=== PATIENT | female | born 2000 | race Caucasian/White ===

== ENCOUNTER 2021-02-10 20:26 | Emergency (ER) | payer OTHER ==
[~2021-02-10] VITALS: Ht 177.8 cm; Wt 86.3 kg
[2021-02-10] MEDS ORDERED: PREN1CHW PO (20:42)
[2021-02-11] MEDS ORDERED: ACETAMINOPHEN 325 MG TAB PO ONE (00:15)
[2021-02-11 00:26] LABS: BASO % 0.2 % (0.0-1.0); EOS % 0.2 % (0.0-3.0); HEMATOCRIT 35.6 % (36.0-47.0); HEMOGLOBIN 11.7 g/dl (12.0-15.5); LYMPH # 1.1 10^3/uL (1.5-5.0); MEAN CORPUSCULAR HEMOGLOBIN 25.7 pg (27.0-33.0); MEAN CORPUSCULAR HGB CONC 32.9 g/dl (32.0-36.5); MEAN CORPUSCULAR VOLUME 78.2 fl (80.0-96.0); MONO # 0.2 10^3/uL (0.0-0.8); MONO % 1.6 % (2.0-8.0); NEUTROPHILS # 10.8 10^3/uL (1.5-8.5); NEUTROPHILS % 88.6 % (36.0-66.0); PLATELET COUNT, AUTOMATED 237 10^3/uL (150-450); RED BLOOD COUNT 4.55 10^6/uL (4.00-5.40); WHITE BLOOD COUNT 12.1 10^3/uL (4.0-10.0)
[2021-02-11 00:52] LABS: ALBUMIN 3.7 GM/DL (3.2-5.2); ALT/SGPT 22 U/L (12-78); BILIRUBIN,DIRECT 0.1 MG/DL (0.0-0.2); BILIRUBIN,TOTAL 0.3 MG/DL (0.2-1.0); BLOOD UREA NITROGEN 8 MG/DL (7-18); CALCIUM LEVEL 9.2 MG/DL (8.5-10.1); CARBON DIOXIDE LEVEL 23 MEQ/L (21-32); CHLORIDE LEVEL 100 MEQ/L (98-107); CREATININE FOR GFR 0.62 MG/DL (0.55-1.30); GLUCOSE, FASTING 86 MG/DL (70-100); LIPASE 97 U/L (73-393); POTASSIUM SERUM 3.8 MEQ/L (3.5-5.1); SODIUM LEVEL 133 MEQ/L (136-145); TOTAL PROTEIN 7.9 GM/DL (6.4-8.2)
[2021-02-11 01:10] VITALS: BP 135/84
--- NOTE | 2021-02-11 01:12 | REPVR ---
PROCEDURE INFORMATION: Exam: US Retroperitoneal Limited, Kidneys Exam date and time: 02/11/2021 12:22 AM Age: 20 years old Clinical indication: Pain; Other: Flank lt; ; Additional info: R/O kidney stone, patient is preg left side TECHNIQUE: Imaging protocol: Real-time ultrasound of the retroperitoneum with image documentation. Examination was focused on the kidneys. COMPARISON: No relevant prior studies available. FINDINGS: Right kidney: Right kidney measures 10.9 cm. Normal echotexture. No stones. No hydronephrosis. Left kidney: Left kidney measures 10.5 cm. Normal echotexture. No stones. No hydronephrosis. Bladder: Urinary bladder is not well visualized. IMPRESSION: No acute findings. No hydronephrosis. Electronically signed by: César Cai On 02/11/2021 01:11:40 AM
--- NOTE | 2021-02-11 01:14 | REPVR ---
PROCEDURE INFORMATION: Exam: US , Limited Exam date and time: 02/11/2021 12:22 AM Age: 20 years old Clinical indication: Pain; Other: Lt adnexal; Gestational age or lmp: 15wks; ; Additional info: Cramping/ left side TECHNIQUE: Imaging protocol: Real-time ultrasound of the maternal uterus with image documentation. Exam focused on the clinical indication. COMPARISON: RENAL US 02/11/2021 12:09 AM FINDINGS: Gestation: Single living intrauterine gestation. heart rate: 134 bpm. presentation: Variable presentation. Placenta: Fundal placenta. No placenta previa. Amniotic fluid index: 9.0 cm. IMPRESSION: Unremarkable limited exam. Electronically signed by: César Cai On 02/11/2021 01:13:58 AM
== END 2021-02-11 02:21 | disposition home or self-care (01) ==
LOC: M ED 20:26
DX: O23.42 Unspecified infection of urinary tract in pregnancy, second trimester (principal); O99.012 Anemia complicating pregnancy, second trimester; Z88.0 Allergy status to penicillin

== ENCOUNTER 2021-07-25 15:10 | Outpatient (CLI) | payer OTHER ==
[~2021-07-25] VITALS: Ht 177.8 cm; Wt 96.0 kg
[~2021-07-25 15:10] MED LIST: PREN1CHW PO
[2021-07-25 15:26] VITALS: BP 119/84
[2021-07-25] MEDS ORDERED: ACET-897 PO (15:45)
[2021-07-25] MEDS ORDERED: FIORICET TAB PO ONE (16:05)
[2021-07-25] MEDS: ACETAMINOPHEN TAB 650MG DOSE (2X325MG) PO ONE ×2 (16:20→16:43)
[2021-07-25] MEDS ORDERED: METOCLOPRAMIDE 10MG TAB PO ONE (16:25)
[2021-07-25] MEDS ORDERED: diphenhydrAMINE 25MG CAP PO ONE (16:25)
[2021-07-25 16:45] LABS: APPEARANCE, URINE CLEAR (CLEAR); BACTERIA, URINE AUTO NEGATIVE (NEGATIVE); BILIRUBIN, URINE AUTO NEGATIVE (NEGATIVE); BLOOD, URINE BLOOD NEGATIVE (NEGATIVE); COLOR, URINE STRAW (YELLOW); GLUCOSE, URINE (UA) AUTO NEGATIVE (NEGATIVE); KETONE, URINE AUTO NEGATIVE (NEGATIVE); LEUKOCYTE ESTERASE, URINE AUTO 1+ (NEGATIVE); NITRITE, URINE AUTO NEGATIVE (NEGATIVE); PROTEIN, URINE AUTO NEGATIVE (NEGATIVE); RBC, URINE AUTO 0 /HPF (0-3); SPECIFIC GRAVITY URINE AUTO 1.002 (1.002-1.035); SQUAMOUS EPITHELIAL CELL UR AU 0 /HPF (0-6); UROBILINOGEN, URINE AUTO 0.2 mg/dL (0.0-2.0); WBC, URINE AUTO 0 /HPF (0-3)
== END 2021-07-25 17:48 | disposition home or self-care (01) ==
LOC: M LDO 15:10
PROVIDERS: ATTEND Registered Nurse
DX: O26.893 Other specified pregnancy related conditions, third trimester (principal); R51.9 Headache, unspecified; R10.31 Right lower quadrant pain; O24.410 Gestational diabetes mellitus in pregnancy, diet controlled; Z88.1 Allergy status to other antibiotic agents; Z3A.38 38 weeks gestation of pregnancy
CPT/HCPCS: 59025; 81001; G0378; G0463

== ENCOUNTER 2021-08-03 19:30 | Inpatient (IN) | payer OTHER ==
[~2021-08-03] VITALS: Ht 177.8 cm; Wt 97.3 kg
[~2021-08-03 19:30] MED LIST changes: +ACET-897 PO
[2021-08-03] MEDS ORDERED: HOME MED LIST COMPLETE! XX SCH (19:35)
[2021-08-03] MEDS ORDERED: LACTATED RINGER'S 1000 ML IV STA (20:28)
[2021-08-03] MEDS ORDERED: LR 1,000 ML IV SCH (20:30)
[2021-08-03] MEDS ORDERED: TRANEXAMIC ACID INJection 1,000 MG in NS 100 ML IV PRN (20:30)
[2021-08-03] MEDS ORDERED: OXYTOCIN DRIP 30 UNITS in IV 1 EA IV SCH (20:30)
[2021-08-03] MEDS ORDERED: miSOPROStol 50MCG 1/2 TABLET PO PRN (20:30)
[2021-08-03] MEDS ORDERED: METHYLERGONOVINE MALEATE 0.2 MG/ML VIAL (J2210) IM PRN (20:30)
[2021-08-03] MEDS ORDERED: OXYTOCIN INJ 10 UNITS/ML VIAL (J2590) IM PRN (20:30)
[2021-08-03] MEDS ORDERED: OXYTOCIN INJ 10 UNITS/ML VIAL (J2590) IV PRN (20:30)
[2021-08-03] MEDS ORDERED: OXYTOCIN DRIP 30 UNITS in IV 1 EA IV PRN ×6 (20:30)
[2021-08-03] MEDS ORDERED: LIDOCAINE 1% MDV 20ML VIAL INFIL PRN (20:30)
[2021-08-03] MEDS ORDERED: CARBOPROST TROMETHAMINE 250 MCG/ML AMP IM PRN (20:30)
[2021-08-03 20:51] LABS: HEMOGLOBIN 10.9 g/dl (12.0-15.5); MEAN CORPUSCULAR HEMOGLOBIN 23.9 pg (27.0-33.0); MEAN CORPUSCULAR HGB CONC 32.1 g/dl (32.0-36.5); MEAN CORPUSCULAR VOLUME 74.6 fl (80.0-96.0); PLATELET COUNT, AUTOMATED 214 10^3/uL (150-450); RED BLOOD COUNT 4.56 10^6/uL (4.00-5.40); WHITE BLOOD COUNT 9.8 10^3/uL (4.0-10.0)
[2021-08-03 23:13] VITALS: BP 134/91
[2021-08-03 23:26] VITALS: BP 133/92
[2021-08-03 23:36] VITALS: BP 135/94
[2021-08-04] VITALS (33 sets, daily range): BP systolic 110–147; BP diastolic 59–97
[2021-08-04] MEDS ORDERED: PROMETHAZINE 25MG/ML 1ML VIAL IV ONE
[2021-08-04] MEDS ORDERED: BUTORPHANOL 2 MG/ML INJ (J0595) IV ONE
[2021-08-04] MEDS ORDERED: INSULIN REGULAR IN 0.9 % NACL 100 UNIT in IV 1 EA IV SCH ×2 (06:45)
[2021-08-04] MEDS ORDERED: INSULIN IV RATE CHANGE DOCUMENTATION ML/HR XX SCH (06:45)
[2021-08-04] MEDS: NS 1,000 ML IV SCH ×2 (07:30→13:58)
[2021-08-04] MEDS ORDERED: OXYTOCIN DRIP 30 UNITS in IV 1 EA IV SCH (07:45)
[2021-08-04] MEDS ORDERED: FENTANYL 2MCG/ML ROPIVACAINE 0.2% IN 0.9% NACL 100ML IVBAG As Ordered ONE (14:39)
[2021-08-04] MEDS ORDERED: LR 500 ML IV PRN (14:45)
[2021-08-04] MEDS ORDERED: ePHEDrine SULFATE 25 MG/5 ML(5MG/ML) SYRINGE IVP PRN (14:45)
[2021-08-04] MEDS ORDERED: EPIDURAL/PCA KEYS XX PRN (14:45)
[2021-08-04] MEDS ORDERED: diphenhydrAMINE 50MG/ML VIAL (J1200) IV PRN (14:45)
[2021-08-04] MEDS ORDERED: ONDANSETRON 4MG/2ML VIAL IV PRN (14:45)
[2021-08-04] MEDS ORDERED: NALOXONE INJ 0.4MG/1ML VIAL (J2310 PER 1MG) IV PRN (14:45)
[2021-08-04] MEDS: FENTANYL/ROPIVACAINE/NACL BAG 100 ML EPIDURAL SCH ×2 (15:28→23:47)
[2021-08-04] MEDS: D5W/0.9% SODIUM CHLORIDE 1,000 ML IV SCH (17:27)
[2021-08-05] MEDS: D5W/0.9% SODIUM CHLORIDE 1,000 ML IV SCH (02:33)
[2021-08-05] MEDS ORDERED: MOM 30ML SUSPENSION UDC PO PRN (06:10)
[2021-08-05] MEDS ORDERED: DIBUCAINE 1% OINTMENT 30GM TOP PRN (06:10)
[2021-08-05] MEDS ORDERED: RHOGAM 300 MCG (1500 IU) INJ (J2790) IM SCH (06:10)
[2021-08-05] MEDS ORDERED: ACETAMINOPHEN 500 MG TAB PO PRN (06:10)
[2021-08-05] MEDS ORDERED: DOCUSATE SODIUM 100MG CAPSULE PO PRN (06:10)
[2021-08-05 09:13] VITALS: BP 132/79
[2021-08-05] MEDS: PRENATAL VITAMINS CHEWABLE TABLET PO SCH (10:10)
[2021-08-05] MEDS: IBUPROFEN 800 MG TAB PO PRN ×2 (10:10→23:09)
[2021-08-05] MEDS: ACETAMINOPHEN 500 MG TAB PO PRN (17:13)
[2021-08-05 18:00] VITALS: BP 124/83
[2021-08-06 06:00] VITALS: BP 122/73
[2021-08-06] MEDS: PRENATAL VITAMINS CHEWABLE TABLET PO SCH (09:05)
[2021-08-06] MEDS: ACETAMINOPHEN 500 MG TAB PO PRN ×2 (12:21→22:14)
[2021-08-06] MEDS: IBUPROFEN 800 MG TAB PO PRN (16:27)
[2021-08-06 18:00] VITALS: BP 122/82
[2021-08-07 05:39] VITALS: BP 119/69
[2021-08-07] MEDS: IBUPROFEN 800 MG TAB PO PRN (06:13)
[2021-08-07] MEDS ORDERED: COLA100C5 PO (06:39)
[2021-08-07] MEDS ORDERED: IBUP80TA PO (06:39)
[2021-08-07] MEDS ORDERED: ACET-683 PO (06:39)
[2021-08-07] MEDS ORDERED: MEASLES,MUMPS,RUBELLA VACCINE INJ (MMR-II) (90707) SC.IMMUN ONE (09:00)
== END 2021-08-07 08:35 | disposition home or self-care (01) | DRG 807 ==
LOC: M LDI 19:30 → M OBS 08-05 09:02
PROVIDERS: ADMIT Obstetrics & Gynecology; ATTEND Obstetrics & Gynecology
PROC: 3E0P7GC Introduction of Other Therapeutic Substance into Female Reproductive, Via Natural or Artificial Opening (ICD-10-PCS; 2021-08-03)
PROC: 10E0XZZ Delivery of Products of Conception, External Approach (ICD-10-PCS; principal; 2021-08-05)
DX: O24.420 Gestational diabetes mellitus in childbirth, diet controlled (principal); Z37.0 Single live birth; Z3A.40 40 weeks gestation of pregnancy; Z88.0 Allergy status to penicillin; O48.0 Post-term pregnancy; O69.81X0 Labor and delivery complicated by cord around neck, without compression, not applicable or unspecified